=== PATIENT | male | born 1985 | race Caucasian/White ===

== ENCOUNTER 2019-12-16 19:30 | Emergency (ER) | payer OTHER, SELFPAY ==
[2019-12-16 19:34] VITALS: BP 132/90; PULSE 85; RESP 16; TEMP 36.6; O2SAT 98
--- NOTE | 2019-12-16 19:59 | ED.GENADUL_ITS ---
Discharge Plan Disposition Patient Disposition: HOME Condition: Stable Discharge Details Chief Complaint: RashLesion Clinical Impression: External hemorrhoid Primary Care Provider: Tomer Skinner ED Provider: Diana Evans Home Meds and New Rx's Prescriptions: New hydrocortisone 2.5 % cream with perineal applicator 1 applic UT QD-BID PRN7 Days Qty: 28 RF: 0 hydrocortisone acetate 25 mg suppository 25 mg UT DAILY PRN (Reason: hemorrhoids) 7 Days Qty: 12 RF: 0 Continued Proctofoam HC 1-1 % foam 1 applic UT TID PRN (Reason: hemorrhoids) Qty: 10 RF: 2 cetirizine [Zyrtec] 10 MG tablet 10 mg PO DAILY RF: 0 olopatadine [Patanol] 5 ML drops 1 drp Ophthalmic TID PRNQty: 5 RF: 0 mometasone [Nasonex] 17 GM spray,non-aerosol 2 spry NS QAM Qty: 3 RF: 0 Discharge Instructions Instructions: Hemorrhoids (ED) Additional Instructions: Take medications as directed. Use suppository once a day and topical cream once or twice a day as needed. Avoid prolonged sitting or straining. You may want to take an [id number] stool softener such as Colace while having hemorrhoid. Follow up with primary care provider in 3-5 days. Return to ED sooner if any w orsening or concerns. Increase oral fluids. Return to the ED for any worsening rectal bleeding, fever, chills or any concerns. Stand Alone Forms: Work Release Discharge Data Discharge Date/Time-TO BE ENTERED AT DEPARTURE: 12/16/19 20:32 Medical Decision Making 34-year-old male presents to the ED with complaints of lump in his rectal area x3 days. Associated with painful bowel movements, small streaks of bright red blood noted with bowel movements. Denies any dark or tarry stools, no abdominal pain, no nausea vomiting diarrhea no fever no chills. Patient states that he is no significant straining, has had a history of internal hemorrhoids in the past and does sit for long periods of time while at work. No other complaints at this time. Has not tried any medications or treatments at home. Findings at this time are consistent with a nonthrombosed external hemorrhoid. Patient does have a history of hemorrhoids. 2003: Plan at this time is to discharge with a rectal suppository and rectal cream. Discussed follow-up with primary care within a week if no better or to return for any worsening, patient verbalizes understanding. HPI General Mode of arrival: ambulatory . Date/Time Provider Initiated Documentation: 12/16/19 19:50 . Limitations to Documentation: no limitations . Information obtained by: patient . HPI Narrative: 34-year-old male presents to the ED with complaints of lump in his rectal area x3 days. Associated with painful bowel movements, small streaks of bright red blood noted with bowel movements. Denies any dark or tarry stools, no abdominal pain, no nausea vomiting diarrhea no fever no chills. Patient states that he is no significant straining, has had a history of internal hemorrhoids in the past and does sit for long periods of time while at work. No other complaints at this time. Has not tried any medications or treatments at home. Related Data Home Medications Medication Instructions Recorded Confirmed cetirizine [Zyrtec] 10 mg PO DAILY tab-cap 01/07/17 12/16/19 mometasone [Nasonex] 2 spry NS QAM #3 inh 01/07/17 12/16/19 olopatadine [Patanol] 1 drp OPHTHALMIC TID PRN #5 ml 01/07/17 09/06/19 hydrocortisone 1 %-pramoxine 1 % 1 applic UT TID PRN #10 gm 09/06/19 12/16/19 rectal foam hydrocortisone 1 applic UT QD-BID PRN 7 Days #28 12/16/19 gm hydrocortisone acetate 25 mg UT DAILY PRN 7 Days #12 each 12/16/19 Previous Rx's Medication Instructions Recorded hydrocortisone 1 %-pramoxine 1 % 1 applic UT TID PRN #10 gm 09/06/19 rectal foam hydrocortisone 1 applic UT QD-BID PRN 7 Days #28 12/16/19 gm hydrocortisone acetate 25 mg UT DAILY PRN 7 Days #12 each 12/16/19 Allergies Allergy/AdvReac Type Severity Reaction Status Date / Time SEASONAL ALLERGIES Allergy Unknown Uncoded 12/16/19 19:37 General Stated Complaint: RashLesion KARELY: 4 Review of Systems All systems reviewed & are unremarkable except as noted in HPI and below Constitutional Constitutional: Denies body ache(s), Denies chills, Denies fever(s), Denies headache(s) and Denies poor appetite ENT Ears, Nose, Mouth, and Throat: Denies headache(s) Gastrointestinal Gastrointestinal: Denies abdominal pain, Denies belching, Denies melena, Reports hematochezia (Small streaks), Denies constipation, Denies diarrhea, Denies loose stools, Denies nausea, Denies vomiting and Denies hematemesis Neurologic Neurologic: Denies headache(s) PFSH Family History Mother No problems noted. Father No problems noted. Brother No problems noted. Maternal Grandfather , AGE 66 Stroke Hypertension Heart disease Hyperlipidemia Paternal Grandfather , AGE 81 Depression Hyperlipidemia Heart disease Maternal Grandmother Hypertension Heart disease Hyperlipidemia Colon cancer Paternal Grandmother , AGE 69 Ovarian cancer Son No problems noted. Daughter No problems noted. Social History Smoking/Tobacco Use Status: Never Alcohol Intake: never Drug use: Never Substance use type: does not use Caregiver/Support person: No Household members: spouse, family and children Communication Needs: None current occupation: [employer] Pets and animals: No Sexually active: Yes Do you think of yourself as: straight/heterosexual Current gender identity: male What is your relationship status?: How often do you talk on the phone with friends or family?: once per week How often do you get together with friends or relatives?: decline to answer How often do you attend judaism or jewish services?: decline to answer Do you belong to any clubs or organized social groups?: no Panel score (0-1 are the most socially isolated patients): 1 What type of physical activity do you participate in: walking Duration: > 90 minutes/day Frequency: 3-4 times per week Destiny/Islam: Alevism Special destiny needs: No Seatbelt use: always 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 Appears stated age. Normal body habitus. Head: Normocephalic, no trauma. Eyes: Pupils PERRLA, Red reflex noted, EOM's intact. Eyelids symmetrical without lesions, discharge, or swelling. . Chest: RRR, Normal S1, S2, distal pulses intact. Resp: Lungs clear to auscultation bilaterally, no wheezes, rales, or rhonchi. GI: Rectal exam, external flesh-colored hemorrhoid noted at approximately 7:00. No internal hemorrhoid palpated, no gross Hemoccult blood noted. Musculoskeletal: Normal gait, 5/5 strength to all four extremities. Skin: No suspicious rashes or lesions. Capillary refill less than 2 sec. Neurologic: Cranial nerves II-XII intact. Alert and oriented x 3. DTR's intact. Course Vital Signs Vital signs: Vital Signs Temperature 36.6 C 12/16/19 19:34 Pulse 85 12/16/19 19:34 Respiratory Rate 16 12/16/19 19:34 Blood Pressure 132/90 12/16/19 19:34 Pulse Oximetry 98 12/16/19 19:34 Temperature 36.6 C 12/16/19 19:34 Temperature Source Skin 12/16/19 19:34 Pulse 85 12/16/19 19:34 Respiratory Rate 16 12/16/19 19:34 Respiratory Effort Non-Labored 12/16/19 19:36 Blood Pressure 132/90 12/16/19 19:34 Blood Pressure Position Sitting 12/16/19 19:34 Pulse Oximetry 98 12/16/19 19:34 Oxygen Delivery Method Room Air 12/16/19 19:34 Oxygen Flow Rate 0 12/16/19 19:34 Pain Level 6 12/16/19 19:34
[2019-12-16 20:14] VITALS: BP 132/90; PULSE 85; RESP 16; TEMP 36.6; O2SAT 98
== END 2019-12-16 20:32 | disposition home or self-care (01) ==
PROVIDERS: Emergency Provider Registered Nurse Emergency; PCP Family Medicine
DX: K64.4 Residual hemorrhoidal skin tags (principal)
CPT/HCPCS: 99283

== ENCOUNTER 2020-05-20 04:09 | Outpatient (CLI) | payer OTHER, SELFPAY ==
[2020-05-20 13:07] LABS: Calculated LDL 137 mg/dL (<100); Cholesterol 199 mg/dL (<200); HDL Cholesterol 41 mg/dL (40-60); Triglyceride 109 mg/dL (<150)
[2020-05-20 13:24] LABS: Hemoglobin A1C 5.3 % (<5.7)
== END 2020-05-20 04:29 ==
PROVIDERS: PCP Nurse Practitioner; Visit Provider Nurse Practitioner
DX: Z13.1 Encounter for screening for diabetes mellitus (principal); Z13.6 Encounter for screening for cardiovascular disorders
CPT/HCPCS: 36415; 80061; 83036

== ENCOUNTER 2020-09-10 11:20 | Outpatient (CLI) | payer OTHER, SELFPAY ==
--- NOTE | 2020-09-10 09:00 | DI.RAD_ITS ---
EXAM: XR SHOULDER LT COMPLETE 2+V CLINICAL HISTORY: left shoulder pain. TECHNIQUE: 2D digital imaging was performed. COMPARISON: No exams were available for comparison FINDINGS: Two view study of the left shoulder reveals no evidence of fracture or dislocation or abnormal soft t issue calcifications.. Subacromial space is not diminished. No degenerative changes in the glenohum eral and AC joints. Bone density is normal. No osseous lesions. IMPRESSION: No significant radiograph findings in these two views of the left shoulder. DATA REPOSITORY: RADIATION DOSE DELIVERED:
== END 2020-09-10 11:21 | disposition home or self-care (01) ==
LOC: DIORS 11:20
PROVIDERS: PCP Nurse Practitioner; Referring Provider Nurse Practitioner; Visit Provider Student in an Organized Health Care Education/Training Program
DX: M25.512 Pain in left shoulder (principal)
CPT/HCPCS: 73030

== ENCOUNTER 2020-10-20 19:54 | Emergency (ER) | payer OTHER, SELFPAY ==
[2020-10-20 19:58] VITALS: BP 128/69; PULSE 65; RESP 16; TEMP 36.4; O2SAT 96
--- NOTE | 2020-10-20 20:00 | DI.CT_ITS ---
EXAM: CT RENAL COLIC WO CLINICAL HISTORY: right sided flank pain. TECHNIQUE: Imaging Protocol: Axial computed tomography images with coronal and sagittal reformatted images were created and reviewed. COMPARISON: CT ABD/PELVIS WO W CONTRAST from 04/04/2017 FINDINGS: ABDOMEN: Lung Bases: Normal where visualized. Liver: Normal density. No measurable mass. Gallbladder and biliary tract: No radiodense calculus or biliary ductal dilation. Pancreas: Normal density, no abnormal calcifications or inflammatory process. Spleen: Normal. Kidneys: Normal size, contour and axis.There is a 2 mm stone in the distal right ureter just proximal to the UVJ. There is minimal hydronephrosis present. No nephrolithiasis is seen. No masses seen. Adrenal glands: No mass is seen. Lymph nodes: Within normal limits. Abdominal Aorta: Abdominal portion non-dilated. PELVIS: Bladder:Incomplete distension but no gross abnormality. Bowel: No obstruction or bowel wall thickening. Appendix is unremarkable. Peritoneal cavity: No ascites, collection or mesenteric inflammatory response. No free air. Reproductive organs: Stable postsurgical changes are seen in the scrotum. Bones: Within normal limits. Soft Tissues: Within normal limits. IMPRESSION: 2 mm stone in the distal right ureter causing minimal hydronephrosis. RADIATION DOSE DELIVERED: 679.57mGy.cm Total DLP DATA REPOSITORY: All CT scans at this facility are submitted to the National Radiology Data Registry (NRDR) Dose Index Registry (DIR) with the [employer] (ACR). RADIATION OPTIMIZATION: All CT scans at this facility use at least one of these dose optimization te chniques: automated exposure control; mA and/or kV adjustment per patient size (includes targeted exa ms where dose is matched to clinical indication); or iterative reconstruction.
--- NOTE | 2020-10-20 20:04 | W.ED.GENAD ---
Discharge Plan Disposition Patient Disposition: HOME Condition: Good Discharge Details Clinical Impression: Kidney calculus Primary Care Provider: Nataly Richards ED Provider: Kristie Woods Home Meds and New Rx's Prescriptions: New tamsulosin [Flomax] 0.4 mg capsule 0.4 mg PO DAILY Qty: 10 RF: 0 Continued cetirizine [Zyrtec] 10 MG tablet 10 mg PO DAILY RF: 0 olopatadine [Patanol] 5 ML drops 1 drp Ophthalmic TID PRNQty: 5 RF: 0 mometasone [Nasonex] 17 GM spray,non-aerosol 2 spry NS QAM Qty: 3 RF: 0 ibuprofen 200 mg Tablet 400 mg PO PRN PRNRF: 0 Discharge Instructions Instructions: Oxycodone, Rapid Release (By mouth), Kidney Stones (ED) Additional Instructions: You have a small kidney stone on the right side. This is likely causing your pain. You may continue with Tylenol and/or ibuprofen as needed for discomfort. You may take Tylenol at anytime. Next dose of ibuprofen may be taken at 4 AM. If this is insufficient at alleviating your discomfort, you may use the oxycodone as prescribed. Do not drive will take this medication. Please keep in a safe place to please encourage water intake. Please strain your urine and attempt to bring stone to your upcoming urology appointment. You may call urology to schedule follow-up appointment, number listed below. If you develop fever/chills, inability stay hydrated, severe pain or other new/worsening symptoms to seek care urgently Stand Alone Forms: Work Release Referrals: Ignacio Maen MD [ [facility]YSICIAN] - Nataly Richards NP [Primary Care Provider] - Discharge Data Discharge Date/Time-TO BE ENTERED AT DEPARTURE: 10/20/20 22:15 Medical Decision Making Patient is a pleasant 35-year-old gentleman presenting today with chief complaint of right flank pain. He reports that it began approximately 30 minutes prior to arrival. Describes a sudden onset when he was watching TV. Denies having pain like this historically. However, he reports that his brother does have kidney stones frequently and he believes this may be with occurring. He denies any hematuria. States that he has had a change in his urinary stream but does not elaborate on this. Denies any penile discharge. Denies any testicular pain. Denies any fevers or chills. Pain is not linked with p.o. intake. No past abdominal surgeries. On exam, patient appears nontoxic. He does have right CVA tenderness. Lungs are clear, normal cardiac exam. No rash. Abdominal exam is benign, negative Wells Primarily concerned for kidney stone. Will give IV Toradol. Will obtain baseline labs, urinalysis and obtain CT for renal study. Also considered abdominal source. His history exam is not consistent with testicular torsion. Patient does report that he has been exercising more frequently, this could be muscular in nature although it is not worsened with any type of movement making this less likely. Patient feeling improved after Toradol. States that he can still feel it but that is not nearly as painful. Labs reviewed notable for ptosis. Stable H&H. Kidney function within normal limits. UA significant for large amount of blood but no evidence of infection. FINDINGS: Liver: Normal. No mass. Gallbladder and bile ducts: Normal. No calcified stones. No ductal dilation. Pancreas: Normal. No ductal dilation. Spleen: Normal. No splenomegaly. Adrenal glands: Normal. No mass. Kidneys and ureters: Punctate calculus in the distal right ureter with minimal proximal hydroureter. No other urolithiasis. Kidneys and ureters are otherwise unremarkable. Stomach and bowel: Unremarkable. No obstruction. No mucosal thickening. Appendix: Normal appendix. Intraperitoneal space: Unremarkable. No free air. No significant fluid collection. Vasculature: Unremarkable. No abdominal aortic aneurysm. Lymph nodes: Prominent left upper quadrant mesenteric lymph nodes, similar to the comparison exam. Urinary bladder: Unremarkable as visualized. Reproductive: Unremarkable as visualized. Bones/joints: Unremarkable. No acute fracture. Soft tissues: Unremarkable. IMPRESSION: Punctate minimally obstructing distal right ureteral calculus. Discussed the findings with the patient. Encourage water intake. We will start him on Flomax to encourage passage of stone. We did discuss the expected course. Advise follow-up with urology. Referral has been sent to Dr. Mane's office. He will strain his urine and attempt to catch the stone. We discussed pain management. He is to do quite well with anti-inflammatories. However, given the severity of his discomfort initially and his concern for this returning throughout the night, will send him home with oxycodone. States usage instructions were discussed. I did advise that he not drive will take this medication and take only as prescribed. Strict return precautions were discussed, in particular signs of infection. All questions and concerns were addressed and he is in agreement this plan. HPI General Mode of arrival: ambulatory. Date/Time Provider Initiated Documentation: 10/20/20 19:58. Limitations to Documentation: no limitations. Information obtained by: patient and RN notes reviewed. History of Present Illness 35 year old M presents to the emergency department with the chief complaint of right flank pain, described as moderate, with intensity rated at 5. Quality is described as sharp, and is localized to the back. Patient reports no radiation. Patient started experiencing this minute(s) (30) and it has been colicky. No relieving factors improve symptom(s), No exacerbating factors reported . Patient notes nausea/vomiting (reports nausea when pain was first noted, since resolved); denies chest pain, cough, fever/chills, loss of appetite, rash, shortness of breath and weakness. Patient did receive the following treatments prior to arrival, none Related Data Home Medications Medication Instructions Recorded Confirmed cetirizine [Zyrtec] 10 mg PO DAILY tab-cap 01/07/17 10/20/20 mometasone [Nasonex] 2 spry NS QAM #3 inh 01/07/17 10/20/20 olopatadine [Patanol] 1 drp OPHTHALMIC TID PRN #5 ml 01/07/17 10/20/20 ibuprofen 400 mg PO PRN PRN 10/20/20 10/20/20 tamsulosin [Flomax] 0.4 mg PO DAILY #10 cap 10/20/20 Previous Rx's Medication Instructions Recorded tamsulosin [Flomax] 0.4 mg PO DAILY #10 cap 10/20/20 Allergies Allergy/AdvReac Type Severity Reaction Status Date / Time SEASONAL ALLERGIES Allergy Unknown Uncoded 10/20/20 20:03 General Stated Complaint: FlankPain KARELY: 3 Review of Systems Constitutional Constitutional: Reports as per HPI, Denies chills, Denies fatigue, Denies fever(s) and Denies headache(s) ENT Ears, Nose, Mouth, and Throat: Denies headache(s) Cardiovascular Cardiovascular: Reports as per HPI, Denies chest pain and Denies dyspnea Respiratory Respiratory: Reports as per HPI, Denies cough and Denies dyspnea Gastrointestinal Gastrointestinal: Reports as per HPI Genitourinary Genitourinary: Reports as per HPI Musculoskeletal Musculoskeletal: Reports as per HPI Neurologic Neurologic: Denies headache(s) Endocrine Endocrine: Denies fatigue [facility] Medical History Decreased urine stream stable Microscopic hematuria (03/25/17) [facility] [place]- 2017 all testing wnl Family History (Updated 05/21/20 @ 08:59 by Amanda Martin) Mother No problems noted. Father No problems noted. Brother No problems noted. Maternal Grandfather , AGE 66 Stroke Hypertension Heart disease Hyperlipidemia Paternal Grandfather , AGE 81 Depression Hyperlipidemia Heart disease Maternal Grandmother Hypertension Heart disease Hyperlipidemia Colon cancer Paternal Grandmother , AGE 69 Ovarian cancer Son No problems noted. Daughter No problems noted. Social History Smoking/Tobacco Use Status: Never Smoking risk assessment performed?: Yes Alcohol Intake: never Drug use: Never Substance use type: does not use Caregiver/Support person: No Household members: spouse, family and children Housing: house Communication Needs: None current occupation: [employer] Pets and animals: No Sexually active: Yes Do you think of yourself as: straight/heterosexual Current gender identity: male What is your relationship status?: How often do you talk on the phone with friends or family?: once per week How often do you get together with friends or relatives?: never How often do you attend rastafari or jewish services?: decline to answer Do you belong to any clubs or organized social groups?: no Panel score (0-1 are the most socially isolated patients): 1 What type of physical activity do you participate in: walking Duration: 30-45 minutes/day Frequency: 5-6 times per week Destiny/Confucianism: Baptist Special destiny needs: No Seatbelt use: always Helmet use: Yes Helmet use: always 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 Do you feel safe at home: Yes Do you feel safe in your relationship?: Yes Victim of physical abuse: No Victim of emotional abuse: No Victim of sexual abuse: No Would you like helpful sources: No Exam Const General: cooperative, healthy appearing, uncomfortable, no acute distress and well developed Nutritional Appearance: average body habitus and well nourished Orientation: alert and awake HENMT Mouth: moist mucous membranes Resp Effort & Inspection: normal respiratory effort and no respiratory distress Auscultation: clear to auscultation bilaterally, no rales, no rhonchi and no wheezes Cardio Rate: regular rate Rhythm: regular rhythm Heart Sounds: S1 normal and S2 normal GI Inspection: normal to inspection, no edema and non-distended Palpation: soft, no hepatosplenomegaly, no guarding, no hernias, no pulsatile masses and nontender Percussion: normal to percussion Auscultation: normal bowel sounds Back/Spine/Pelvis Back: CVA tenderness (right) Skin General skin exam: no rashes or lesions noted Neuro General: patient alert and patient awake Cognition: normal cognition Speech: speech normal Gait: normal gait Psych Appearance: grossly normal and well kempt Mental Status: mental status grossly normal Speech and Movement: speech and movement normal Course Vital Signs Vital signs: Vital Signs Temperature 36.4 C L 10/20/20 19:58 Pulse 65 10/20/20 19:58 Respiratory Rate 16 10/20/20 19:58 Blood Pressure 128/69 10/20/20 19:58 Pulse Oximetry 96 10/20/20 19:58 Temperature 36.4 C L 10/20/20 19:58 Temperature Source Temporal Artery Scan 10/20/20 19:58 Pulse 65 10/20/20 19:58 Respiratory Rate 16 10/20/20 19:58 Blood Pressure 128/69 10/20/20 19:58 Blood Pressure Position Sitting 10/20/20 19:58 Pulse Oximetry 96 10/20/20 19:58 Pain Level 5 10/20/20 19:58
[2020-10-20 20:49] LABS: Absolute Basophil Count 0.06 10^3/uL (0.0-0.2); Absolute Lymphocyte Count 1.87 10^3/uL (1.2-3.4); Absolute Monocyte Count 0.52 10^3/uL (0.1-0.8); Absolute Neutrophil Count 2.65 10^3/uL (1.2-6.7); Basophils % 1.1; Eosinophils % 10.5; HCT 45.8 % (40.0-50.0); HGB 14.9 g/dL (13.5-17.5); Lymphocytes % 32.8; MCH 30.3 pg (27.0-33.0); MCHC 32.5 % (32.0-36.0); MCV 93.3 fL (80-95); MPV 11.5 fL (8.0-11.0); Monocytes % 9.1; Neutrophils % 46.5; Nucleated RBC 0 %; Platelet Count 207 10^3/uL (130-400); RBC 4.91 10^6/uL (4.36-5.78); RDW 12.8 % (11.8-14.1); RDW-SD 44.1 fL
[2020-10-20] MEDS: Normal Saline 1,000 ML 1000 ML IV (20:50)
[2020-10-20] MEDS: Ketorolac 30 MG/ML VIAL IVP (20:51)
[2020-10-20 20:53] VITALS: BP 112/76; PULSE 58; RESP 18; O2SAT 98
[2020-10-20 20:53] LABS: Bilirubin Negative (Negative); Blood Large (Negative); Clarity Clear (Clear); Glucose Negative (Negative); Ketones Negative (Negative); Leukocyte Esterase Negative (Negative); Nitrite Negative (Negative); Urobilinogen 0.2 EU/dL (Up TO 0.2)
[2020-10-20 20:57] LABS: Epithelial Cells Rare HPF (Negative); RBC >50 HPF (0-2); WBC Negative HPF (0-5)
[2020-10-20 20:58] LABS: Bacteria Negative HPF (Negative); C & S Indicated? No; Casts Negative LPF (Negative); Crystals Negative HPF (Negative); Mucus Negative (Negative); Other Cells Negative (Negative)
[2020-10-20 21:03] LABS: ALT 29 U/L (16-63); AST 16 U/L (15-37); Albumin 4.4 g/dL (3.4-5.0); Alkaline Phosphatase 77 U/L (46-116); Anion Gap 6.7 mmol/L (3-11); BUN 18 mg/dL (7-18); Bilirubin, Total 0.8 mg/dL (0.2-1.0); CO2 31.3 mmol/L (21.0-32.0); CREATININE 1.1 mg/dL (0.70-1.30); Calcium 8.9 mg/dL (8.5-10.1); Chloride 103 mmol/L (98-107); Glucose 121 mg/dL (74-106); Potassium 3.9 mmol/L (3.5-5.1); Sodium 141 mmol/L (136-145); Total Protein 7.7 g/dL (6.4-8.2)
--- NOTE | 2020-10-20 21:33 | DI.VRAD_ITS ---
PROCEDURE INFORMATION: Exam: CT Abdomen And Pelvis Without Contrast Exam date and time: 10/20/2020 8:44 PM Age: 35 years old Clinical indication: Patient HX: Sudden onset of R flank pain TECHNIQUE: Imaging protocol: Computed tomography of the abdomen and pelvis without contrast. Radiation optimization: All CT scans at this facility use at least one of these dose optimization techniques: automated exposure control; mA and/or kV adjustment per patient size (includes targeted exams where dose is matched to clinical indication); or iterative reconstruction. COMPARISON: CT ABD/PELVIS WO W CONTRAST 04/04/2017 8:45 AM FINDINGS: Liver: Normal. No mass. Gallbladder and bile ducts: Normal. No calcified stones. No ductal dilation. Pancreas: Normal. No ductal dilation. Spleen: Normal. No splenomegaly. Adrenal glands: Normal. No mass. Kidneys and ureters: Punctate calculus in the distal right ureter with minimal proximal hydroureter. No other urolithiasis. Kidneys and ureters are otherwise unremarkable. Stomach and bowel: Unremarkable. No obstruction. No mucosal thickening. Appendix: Normal appendix. Intraperitoneal space: Unremarkable. No free air. No significant fluid collection. Vasculature: Unremarkable. No abdominal aortic aneurysm. Lymph nodes: Prominent left upper quadrant mesenteric lymph nodes, similar to the comparison exam. Urinary bladder: Unremarkable as visualized. Reproductive: Unremarkable as visualized. Bones/joints: Unremarkable. No acute fracture. Soft tissues: Unremarkable. IMPRESSION: Punctate minimally obstructing distal right ureteral calculus. Dictated and Authenticated by: Harris Espino MD. Ordering:TRISTON Flowers MD
[2020-10-20] MEDS: Tamsulosin 0.4 MG CAPCR PO (22:01)
--- NOTE | 2020-10-20 22:01 | NUR.NOTE ---
Nursing Note: REFERAL SENT TO UROLOGY FOR KIDNEY STONES 10/20/20
[2020-10-20 22:07] VITALS: BP 114/72; PULSE 71; RESP 18; TEMP 36.8; O2SAT 99
== END 2020-10-20 22:15 | disposition home or self-care (01) ==
PROVIDERS: Emergency Provider Physician Assistant; PCP Nurse Practitioner
DX: N13.2 Hydronephrosis with renal and ureteral calculous obstruction (principal); R11.2 Nausea with vomiting, unspecified
CPT/HCPCS: 36415; 80053; 96361; 96374; 99284; 74176; 81003; 81015; 85025; 99285; J1885

== ENCOUNTER 2020-11-11 14:58 | Outpatient (REF) | payer OTHER, SELFPAY ==
[2020-11-17 22:18] LABS: Source: Passed Stone
== END 2020-11-11 14:59 | disposition home or self-care (01) ==
LOC: LBN 14:58
PROVIDERS: PCP Nurse Practitioner; Visit Provider Nurse Practitioner Gerontology
DX: N20.0 Calculus of kidney (principal)
CPT/HCPCS: 82365

== ENCOUNTER 2020-11-18 03:12 | Outpatient (CLI) | payer OTHER, SELFPAY ==
[2020-11-18 12:52] LABS: Calculated LDL 82 mg/dL (<100); Cholesterol 137 mg/dL (<200); HDL Cholesterol 45 mg/dL (40-60); Triglyceride 51 mg/dL (<150)
== END 2020-11-18 03:13 | disposition home or self-care (01) ==
LOC: LOS 03:12
PROVIDERS: PCP Nurse Practitioner; Visit Provider Nurse Practitioner
DX: Z13.220 Encounter for screening for lipoid disorders (principal)
CPT/HCPCS: 36415; 80061

== ENCOUNTER 2021-03-19 05:59 | Emergency (ER) | payer OTHER, SELFPAY ==
--- NOTE | 2021-03-19 06:00 | DI.CT_ITS ---
Exam(s) CT RENAL COLIC WO EXAM: CT RENAL COLIC WO CLINICAL HISTORY: left flank pain. TECHNIQUE: Imaging Protocol: Axial computed tomography images with coronal and sagittal reformatted images were created and reviewed CONTRAST MATERIAL: Intravenous: none Oral: None COMPARISON: CT CT RENAL COLIC WO from 10/20/2020 FINDINGS: VISUALIZED LUNG BASES: No nodules nor pleural effusions evident. ABDOMEN: There is no ascites. LIVER: There are no obvious focal hepatic lesions evident of this noninfused study. GALLBLADDER/BILIARY: No obvious gallbladder pathology. CBD is not dilated. PANCREAS: No evidence of pancreatic mass nor dilatation of the pancreatic duct. SPLEEN: Spleen is not enlarged. No obvious intrasplenic lesions. ADRENALS: There are no significant adrenal masses. KIDNEYS:No cysts evident. No solid renal masses. No calculi nor hydronephrosis. . ABDOMINAL AORTA: Abdominal aorta is not enlarged. LYMPH NODES: There is no retroperitoneal nor paraaortic adenopathy. ABDOMINAL WALL: No evidence of significant anterior abdominal wall nor inguinal hernia. GI: There is no evidence of bowel obstruction, free air, nor abscess. There are mesenteric lymph nodes ranging up to 8 millimeter size. PELVIS: LYMPH NODES: There is no intrapelvic nor inguinal adenopathy. GI: Appendix exhibits a diameter 5-6 millimeters. It appears somewhat straightened. No obvious per iappendiceal streaking. No appendiculalith.No evidence of sigmoid diverticulitis. URINARY BLADDER: Somewhat thickened uniform bladder wall. No distinct mass. No calculi. REPRODUCTIVE: Prostate not enlarged. Seminal vesicles unremarkable. OSSEOUS: No significant osseous lesions. IMPRESSION: 1. Although the appendix exhibits upper normal diameter, it appears somewhat straightened. There is no periappendiceal streaking. No appendicular lith. Correlation with site of tenderness is recommen ded. However, the appendix appears unchanged from prior CT scan of 10/20/2020 2. There are few slightly prominent lymph nodes in the mesentery measuring up to 8 millimeters size. 3. No evidence of renal calculi nor obstruction of the urinary tracts at this time. Study 1st read by [facility]. Final report called by myself to the emergency room provider 03/19/2021 8:50 a.m. RADIATION DOSE DELIVERED: 592.6mGy.cm Total DLP DATA REPOSITORY: All CT scans at this facility are submitted to the National Radiology Data Registry (NRDR) Dose Index Registry (DIR) with the [employer] (ACR). RADIATION OPTIMIZATION: All CT scans at this facility use at least one of these dose optimization te chniques: automated exposure control; mA and/or kV adjustment per patient size (includes targeted exa ms where dose is matched to clinical indication); or iterative reconstruction.
[2021-03-19 06:03] VITALS: BP 114/69; PULSE 61; RESP 16; TEMP 36.4; O2SAT 97
--- NOTE | 2021-03-19 06:10 | W.ED.GENAD ---
Discharge Plan Disposition Patient Disposition: HOME Condition: Stable Discharge Details Clinical Impression: Left-sided back pain Primary Care Provider: Nataly Richards ED Provider: Aguila Lopez Home Meds and New Rx's Prescriptions: No Action No Known Home Meds RF: 0 Discharge Instructions Additional Instructions: your cat scan did not show any kidney stones. This is likely a muscle spasm or back strain you can take 1000mg tylenol and 600mg ibuprofen every 6 hours as needed for pain you can try taking over the couter pepcid if you develop acid reflux follow up with your primary care provider within 1 week if pain continues if you feel more ill, have severe worsening pain or fevers return to the emergency department Medical Decision Making 36 yo male with hx of kidney stones, last being in October, comes in with left flank pain starting last night. He woke up for work at 4am and when he got to work it increased to 9/10 on the pain scale so came here, now rates it as a 4-5/10. Describes it as a sharp sensation in the left lower back and states it radiates to the left abdomen. No midline pain, no weakness numbness or saddle anesthesia. He has no abdomen tenderness, no cva tenderness and denies dysuria. Suspect kidney stone, will obtain labs, ua and ct renal colic. No findings on history to exam to suggest spinal cord pathology such as sea or cauda equina and given lack of abdomen tenderness doubt surgical pathology such as appendicitis. labs unremarkable and ua without concerning findings. CT has no kidney stones, they did note perigastric straning with equivocal thickening of gastric fundus, consider gastritis. normal lipase so doubt pancreatitis and has no abdomen tenderness. No urinary symptoms so doubt uti. His pain is resolved and still has no abdomen tenderness. Suspect spasm vs strain. Discussed findings with pt and he is stable for d/c. Advised to f/u with pcp and return precautions given Differential Diagnosis Differential Diagnosis: diverticulitis, kidney stone, muscle spasm Medical Records Medical records reviewed: Yes I reviewed the patient's medical records. Imaging Data Radiologic Study: Attestation: I personally reviewed and interpreted this imaging study as follows: Imaging: CT Scan Radiologist's impression: IMPRESSION: 1. Perigastric stranding noted extending into the lesser sac. There is equivocal thickening of the gastric fundus. Consider gastritis in the correct clinical setting. Would also recommend correlation with pancreatic enzymes to exclude pancreatitis. 2. Equivocal cystitis. Lab Data Lab results reviewed: Yes I reviewed the patient's lab results. HPI General Mode of arrival: ambulatory. Date/Time Provider Initiated Documentation: 03/19/21 06:00. Limitations to Documentation: no limitations. Information obtained by: patient. History of Present Illness 36 year old M presents to the emergency department with the chief complaint of left flank pain, described as moderate, with intensity rated at 5. Quality is described as stabbing, Patient started experiencing this day(s) (1) and it has been intermittent. No relieving factors improve symptom(s), No exacerbating factors reported . Patient notes no other symptoms.. Patient did receive the following treatments prior to arrival, none Related Data Home Medications Medication Instructions Recorded Confirmed Unknown [No Known Home Meds] 03/19/21 03/19/21 Allergies Allergy/AdvReac Type Severity Reaction Status Date / Time SEASONAL ALLERGIES Allergy Unknown Uncoded 03/19/21 06:10 General KARELY: 3 Review of Systems All systems reviewed & are unremarkable except as noted in HPI and below Constitutional Constitutional: Denies chills, Denies fever(s) and Denies weakness Cardiovascular Cardiovascular: Denies chest pain and Denies dyspnea Respiratory Respiratory: Denies cough and Denies dyspnea Gastrointestinal Gastrointestinal: Denies abdominal pain, Denies nausea and Denies vomiting Musculoskeletal Musculoskeletal: Denies joint swelling Neurologic Neurologic: Denies weakness [facility] Medical History Decreased urine stream stable Microscopic hematuria (03/25/17) [facility] [place] all testing wnl Family History Mother No problems noted. Father No problems noted. Brother No problems noted. Maternal Grandfather , AGE 66 Stroke Hypertension Heart disease Hyperlipidemia Paternal Grandfather , AGE 81 Depression Hyperlipidemia Heart disease Maternal Grandmother Hypertension Heart disease Hyperlipidemia Colon cancer Paternal Grandmother , AGE 69 Ovarian cancer Son No problems noted. Daughter No problems noted. Social History Smoking/Tobacco Use Status: Never Smoking risk assessment performed?: Yes Alcohol Intake: never Drug use: Never Substance use type: does not use Caregiver/Support person: No Household members: spouse, family and children Housing: house Communication Needs: None current occupation: [employer] Pets and animals: No Sexually active: Yes Do you think of yourself as: straight/heterosexual Current gender identity: male What is your relationship status?: How often do you talk on the phone with friends or family?: once per week How often do you get together with friends or relatives?: never How often do you attend mu-ism or gnosticism services?: decline to answer Do you belong to any clubs or organized social groups?: no Panel score (0-1 are the most socially isolated patients): 1 What type of physical activity do you participate in: walking Duration: 30-45 minutes/day Frequency: 5-6 times per week Destiny/Sabianism: Samaritan Special destiny needs: No Seatbelt use: always Helmet use: Yes Helmet use: always Drive intox or ride w/intox snaker tractor driver: No Do you feel safe at home: Yes Do you feel safe in your relationship?: Yes Victim of physical abuse: No Victim of emotional abuse: No Victim of sexual abuse: No Would you like helpful sources: No Exam Const General: no acute distress Orientation: alert HENMT Head: normal to inspection Ears: external ears normal General nose exam: external nose normal Mouth: moist mucous membranes Eyes General: appearance normal, both eyes and all related structures Neck Neck: normal visual inspection Resp Effort & Inspection: normal respiratory effort and able to speak in complete sentences Cardio Rate: regular rate GI Palpation: soft and nontender Back/Spine/Pelvis Back: no CVA tenderness Skin General skin exam: no rashes or lesions noted Neuro General: patient alert and patient oriented x3 Extrem General: normal to inspection Psych Mental Status: mental status grossly normal
[2021-03-19 06:24] LABS: Bilirubin Negative (Negative); Blood Negative (Negative); Clarity Clear (Clear); Glucose Negative (Negative); Ketones Negative (Negative); Leukocyte Esterase Negative (Negative); Nitrite Negative (Negative); Specific Gravity 1.025 (1.005-1.025); Urobilinogen 0.2 EU/dL (Up TO 0.2); pH 5.5 (5-8)
[2021-03-19 06:24] LABS: Abs Immature Grans 0.01 10^3/uL (0.0-0.06); Absolute Basophil Count 0.05 10^3/uL (0.0-0.2); Absolute Eosinophil Count 0.34 10^3/uL (0.0-0.7); Absolute Lymphocyte Count 1.36 10^3/uL (1.2-3.4); Absolute Monocyte Count 0.47 10^3/uL (0.1-0.8); Absolute Neutrophil Count 3.02 10^3/uL (1.2-6.7); Eosinophils % 6.5; HCT 46.5 % (40.0-50.0); HGB 15.4 g/dL (13.5-17.5); Immature Grans % 0.2; Lymphocytes % 25.9; MCH 30.2 pg (27.0-33.0); MCHC 33.1 % (32.0-36.0); MCV 91.2 fL (80-95); MPV 10.5 fL (8.0-11.0); Neutrophils % 57.4; Nucleated RBC 0 %; Platelet Count 223 10^3/uL (130-400); RDW 12.6 % (11.8-14.1); RDW-SD 42.3 fL; WBC 5.25 10^3/uL (4.4-10.8)
[2021-03-19] MEDS: Normal Saline 1,000 ML 1000 ML IV (06:26)
[2021-03-19] MEDS: Ketorolac 15 MG/ML VIAL IVP (06:26)
[2021-03-19 06:38] LABS: ALT 33 U/L (16-63); AST 15 U/L (15-37); Albumin 4.3 g/dL (3.4-5.0); Alkaline Phosphatase 70 U/L (46-116); Anion Gap 6.7 mmol/L (3-11); BUN 17 mg/dL (7-18); Bilirubin, Total 1.4 mg/dL (0.2-1.0); CO2 29.3 mmol/L (21.0-32.0); CREATININE 1.1 mg/dL (0.70-1.30); Calcium 8.6 mg/dL (8.5-10.1); Chloride 104 mmol/L (98-107); Glucose 94 mg/dL (74-106); Lipase 78 U/L (73-393); Potassium 4.2 mmol/L (3.5-5.1); Sodium 140 mmol/L (136-145); Total Protein 7.8 g/dL (6.4-8.2)
--- NOTE | 2021-03-19 07:02 | DI.VRAD_ITS ---
PROCEDURE INFORMATION: Exam: CT Abdomen And Pelvis Without Contrast Exam date and time: 03/19/2021 6:10 AM Age: 36 years old Clinical indication: Other: Left flank pain / HX of stones TECHNIQUE: Imaging protocol: Computed tomography of the abdomen and pelvis without contrast. COMPARISON: CT ABD/PELVIS WO W CONTRAST 04/04/2017 8:45 AM FINDINGS: Liver: Normal. No mass. Gallbladder and bile ducts: Normal. No calcified stones. No ductal dilation. Pancreas: See Stomach and bowel finding. Spleen: Normal. No splenomegaly. Adrenal glands: Normal. No mass. Kidneys and ureters: Normal. No hydronephrosis. Stomach and bowel: Perigastric stranding noted extending into the lesser sac. There is equivocal thickening of the gastric fundus. Consider gastritis in the correct clinical setting. Would also recommend correlation with pancreatic enzymes to exclude pancreatitis. Appendix: No evidence of appendicitis. Intraperitoneal space: Unremarkable. No free air. No significant fluid collection. Vasculature: Unremarkable. No abdominal aortic aneurysm. Lymph nodes: Unremarkable. No enlarged lymph nodes. Urinary bladder: The urinary bladder is questionably thickwalled. This may reflect incomplete distention. However correlation with UA is recommended to exclude cystitis. Reproductive: Unremarkable as visualized. Bones/joints: Unremarkable. No acute fracture. Soft tissues: Unremarkable. IMPRESSION: 1. Perigastric stranding noted extending into the lesser sac. There is equivocal thickening of the gastric fundus. Consider gastritis in the correct clinical setting. Would also recommend correlation with pancreatic enzymes to exclude pancreatitis. 2. Equivocal cystitis. Dictated and Authenticated by: Erasto Das MD. Ordering:MARJAN Sheehan MD
[2021-03-19 07:19] VITALS: BP 103/65; PULSE 55; RESP 18; TEMP 36.6; O2SAT 97
== END 2021-03-19 07:22 | disposition home or self-care (01) ==
PROVIDERS: Emergency Provider Emergency Medicine; PCP Nurse Practitioner
DX: M54.9 Dorsalgia, unspecified (principal); R10.9 Unspecified abdominal pain
CPT/HCPCS: 80053; 83690; 96361; 96374; 99284; 74176; 81003; 85025; J1885

== ENCOUNTER 2021-08-07 01:27 | Outpatient (CLI) | payer OTHER, SELFPAY ==
--- NOTE | 2021-08-07 06:45 | DI.RAD_ITS ---
Exam(s) XR RIBS RT W PA LAT CHEST EXAM: XR RIBS RT W PA LAT CHEST CLINICAL HISTORY: r/o fx,CONTUSION RIB RT SIDE,S20.211A TECHNIQUE: 2D digital imaging was performed. COMPARISON: No exams were available for comparison FINDINGS: MEDIASTINUM: Normal. HEART: Normal. PULMONARY VASCULATURE: Normal. LUNGS: Clear. PLEURAL SPACE: No pleural effusion or pneumothorax. BONE:Normal. RIGHT RIBS: Normal. OTHER FINDINGS:Normal. IMPRESSION: 1. No acute pulmonary findings. 2. Unremarkable right ribs. DATA REPOSITORY: RADIATION DOSE DELIVERED:
== END 2021-08-07 01:47 ==
PROVIDERS: PCP Nurse Practitioner; Visit Provider Nurse Practitioner
DX: S20.211A Contusion of right front wall of thorax, initial encounter (principal); X58.XXXA Exposure to other specified factors, initial encounter
CPT/HCPCS: 71046; 71100

== ENCOUNTER 2021-09-18 12:14 | Emergency (ER) | payer OTHER, SELFPAY ==
--- NOTE | 2021-09-18 12:15 | RT.EKG_ITS ---
APPROVED REPORT Exam: Resting ECG Reason for Exam: CHEST PAIN Patient Location: E HR:53 bpm ECG Measurements Heart Rate 53 AXIS NC 139 P 69 QRSd 77 QRS 63 QT 429 T 26 QTc 402 Conclusion Sinus bradycardia...rate< 60. Sinus. Normal axis. No STEMI. I have reviewed and interpreted ECG and agree with software generated interpretation.
[2021-09-18 12:23] VITALS: BP 116/81; PULSE 62; RESP 16; TEMP 36.1; O2SAT 97
[2021-09-18 13:44] LABS: Abs Immature Grans 0.01 10^3/uL (0.0-0.06); Absolute Basophil Count 0.05 10^3/uL (0.0-0.2); Absolute Lymphocyte Count 1.87 10^3/uL (1.2-3.4); Absolute Monocyte Count 0.49 10^3/uL (0.1-0.8); Absolute Neutrophil Count 2.52 10^3/uL (1.2-6.7); Basophils % 0.9; Eosinophils % 7.5; HCT 43.2 % (40.0-50.0); HGB 14.4 g/dL (13.5-17.5); Immature Grans % 0.2; MCHC 33.3 % (32.0-36.0); MPV 10.8 fL (8.0-11.0); Monocytes % 9.2; Neutrophils % 47.2; Nucleated RBC 0 %; Platelet Count 217 10^3/uL (130-400); RDW 12.4 % (11.8-14.1); RDW-SD 41.2 fL; WBC 5.34 10^3/uL (4.4-10.8)
[2021-09-18 14:00] LABS: ALT 27 U/L (16-63); AST 20 U/L (15-37); Albumin 4.2 g/dL (3.4-5.0); Alkaline Phosphatase 67 U/L (46-116); Anion Gap 7.2 mmol/L (3-11); BUN 10 mg/dL (7-18); Bilirubin, Total 2.1 mg/dL (0.2-1.0); CO2 27.8 mmol/L (21.0-32.0); Calcium 8.5 mg/dL (8.5-10.1); Chloride 105 mmol/L (98-107); Glucose 81 mg/dL (74-106); Magnesium 2.3 mg/dL (1.8-2.4); Potassium 3.8 mmol/L (3.5-5.1); Sodium 140 mmol/L (136-145); Total Protein 7.4 g/dL (6.4-8.2); Troponin I < 50 ng/L (<or=60)
[2021-09-18 14:13] LABS: D-Dimer 88 ng/mlFEU (<500)
[2021-09-18] MEDS: Ketorolac 15 MG/ML VIAL IVP (14:44)
--- NOTE | 2021-09-18 14:53 | DI.RAD_ITS ---
Exam(s) XR CHEST 2V PA LATERAL EXAM: XR CHEST 2V PA LATERAL CLINICAL HISTORY: chest pain TECHNIQUE: 2D digital imaging was performed of the chest. Two images were obtained. PA and lateral views were obtained. COMPARISON: CR XR RIBS RT W PA LAT CHEST from 08/07/2021 FINDINGS: MEDIASTINUM: Normal. HEART: Normal. PULMONARY VASCULATURE: Normal. LUNGS: Clear. PLEURAL SPACE: No pleural effusion or pneumothorax. BONE:Within normal limits for the patient's age. OTHER FINDINGS:Normal. IMPRESSION: No acute pulmonary findings. DATA REPOSITORY: RADIATION DOSE DELIVERED:
--- NOTE | 2021-09-18 15:26 | W.ED.GENAD ---
Discharge Plan Disposition Patient Disposition: HOME Condition: Stable Discharge Details Clinical Impression: Costochondritis Primary Care Provider: Nataly Richards ED Provider: Maximus Prescott Home Meds and New Rx's Prescriptions: New ibuprofen [IBU] 600 mg tablet 600 mg PO QID PRN (Reason: pain) Qty: 20 0RF No Action hydrocortisone [Anusol-HC] 2.5 % cream with perineal applicator 1 applic [place] QD-BID PRN (Reason: hemorrhoids) Qty: 30 1RF Discharge Instructions Instructions: Costochondritis (ED) Additional Instructions: Please take the ibuprofen as discussed and feel free to return to the emergency department for any new or significant worsening of your symptoms. If you are not improving over the next week please follow-up with your primary care provider for reassessment and further work-up and evaluation as needed. Referrals: Nataly Richards, FRONT DESK MANAGER [Primary Care Provider] - Discharge Data Discharge Date/Time-TO BE ENTERED AT DEPARTURE: 09/18/21 15:56 Medical Decision Making Patient presenting to the emergency department for chief complaint of chest pressure. He states that this is going on intermittently for the past 3 months but seem to start around the same time he had blunt trauma to the chest. Patient denies any pain with activity and states that he is a runner and otherwise feels fine but typically occurs at rest or with in certain lying positions where he will have a short brief episode of significant right-sided chest pain. Physical exam is unremarkable for any reproducible pain and otherwise benign exam. We will plan on checking standard screening labs along with troponin and D-dimer and chest x-ray. Will give patient Toradol while waiting. Vital signs are stable. Review of EKG shows sinus bradycardia otherwise no acute findings. Please see attending physician's full interpretation note. Review of labs is unremarkable CBC, negative D-dimer, negative troponin, slightly elevated total bilirubin of 2.1 but otherwise no other abnormalities noted. Reassessed patient and patient is asymptomatic at this time. Review of radiologist interpretation of x-ray imaging states no acute cardiopulmonary findings. Given that patient has had symptoms for 3 months with negative troponin and unremarkable work-up I feel patient is safe for outpatient management. I suspect costochondritis with some pleuritic discomfort intermittently. At this time I doubt any emergent cardiac or pulmonary findings but patient informed to take ibuprofen for the next couple days and follow-up with primary care provider. Did discuss with patient return precautions for any new or worsening of symptoms. After discussion of diagnosis and plan of care patient has no further needs, questions, or concerns and states clear understanding to return to the emergency department for any worsening symptoms. Lab Data Labs: Laboratory Tests Range/Units 09/18/21 09/18/21 09/18/21 13:34 13:34 13:39 WBC (4.4-10.8) 10^3/uL 5.34 RBC (4.36-5.78) 10^6/uL 4.80 Hgb (13.5-17.5) g/dL 14.4 Hct (40.0-50.0) % 43.2 MCV (80-95) fL 90.0 MCH (27.0-33.0) pg 30.0 MCHC (32.0-36.0) % 33.3 RDW (11.8-14.1) % 12.4 Plt Count (130-400) 10^3/uL 217 MPV (8.0-11.0) fL 10.8 Immature Gran % 0.2 Neutrophils % 47.2 Lymphocytes % 35.0 Monocytes % 9.2 Eosinophils % 7.5 Basophils % 0.9 Nucleated RBC % % 0 Absolute Neutrophils (1.2-6.7) 10^3/uL 2.52 Absolute Lymphocytes (1.2-3.4) 10^3/uL 1.87 Absolute Monocytes (0.1-0.8) 10^3/uL 0.49 Absolute Eosinophils (0.0-0.7) 10^3/uL 0.40 Absolute Basophils (0.0-0.2) 10^3/uL 0.05 D-Dimer (<500) ng/mlFEU 88 Sodium (136-145) mmol/L 140 Potassium (3.5-5.1) mmol/L 3.8 Chloride (98-107) mmol/L 105 Carbon Dioxide (21.0-32.0) mmol/L 27.8 Anion Gap (3-11) mmol/L 7.2 BUN (7-18) mg/dL 10 Creatinine (0.70-1.30) mg/dL 1.0 Estimated GFR/1.73 m2 (mL/min/1.73m2) >= 60.00 Glucose (74-106) mg/dL 81 Calcium (8.5-10.1) mg/dL 8.5 Magnesium (1.8-2.4) mg/dL 2.3 Total Bilirubin (0.2-1.0) mg/dL 2.1 H AST (15-37) U/L 20 ALT (16-63) U/L 27 Alkaline Phosphatase (46-116) U/L 67 Troponin I (<or=60) ng/L < 50 Total Protein (6.4-8.2) g/dL 7.4 Albumin (3.4-5.0) g/dL 4.2 Range/Units 09/18/21 15:24 WBC (4.4-10.8) 10^3/uL RBC (4.36-5.78) 10^6/uL Hgb (13.5-17.5) g/dL Hct (40.0-50.0) % MCV (80-95) fL MCH (27.0-33.0) pg MCHC (32.0-36.0) % RDW (11.8-14.1) % Plt Count (130-400) 10^3/uL MPV (8.0-11.0) fL Immature Gran % Neutrophils % Lymphocytes % Monocytes % Eosinophils % Basophils % Nucleated RBC % % Absolute Neutrophils (1.2-6.7) 10^3/uL Absolute Lymphocytes (1.2-3.4) 10^3/uL Absolute Monocytes (0.1-0.8) 10^3/uL Absolute Eosinophils (0.0-0.7) 10^3/uL Absolute Basophils (0.0-0.2) 10^3/uL D-Dimer (<500) ng/mlFEU Sodium (136-145) mmol/L Potassium (3.5-5.1) mmol/L Chloride (98-107) mmol/L Carbon Dioxide (21.0-32.0) mmol/L Anion Gap (3-11) mmol/L BUN (7-18) mg/dL Creatinine (0.70-1.30) mg/dL Estimated GFR/1.73 m2 (mL/min/1.73m2) Glucose (74-106) mg/dL Calcium (8.5-10.1) mg/dL Magnesium (1.8-2.4) mg/dL Total Bilirubin (0.2-1.0) mg/dL AST (15-37) U/L ALT (16-63) U/L Alkaline Phosphatase (46-116) U/L Troponin I (<or=60) ng/L Cancelled Total Protein (6.4-8.2) g/dL Albumin (3.4-5.0) g/dL HPI General Mode of arrival: ambulatory. Date/Time Provider Initiated Documentation: 09/18/21 12:24. Limitations to Documentation: no limitations. Information obtained by: patient. History of Present Illness 36 year old M presents to the emergency department with the chief complaint of Chest tightness, described as moderate and similar to prior episodes, Quality is described as dull, and is localized to the chest. Patient reports no radiation. Patient started experiencing this month(s) (3) and it has been intermittent. improves with No relieving factors improve symptom(s), No exacerbating factors reported . Patient notes no other symptoms.. Patient did receive the following treatments prior to arrival, none Related Data Home Medications Medication Instructions Recorded Confirmed hydrocortisone 2.5 % topical cream 1 applic [place] QD-BID PRN #30 g 08/06/21 09/18/21 with perineal applicator (Anusol-HC) ibuprofen 600 mg tablet (IBU) 600 mg PO QID PRN #20 tab 09/18/21 Previous Rx's Medication Instructions Recorded hydrocortisone 2.5 % topical cream 1 applic [place] QD-BID PRN #30 g 08/06/21 with perineal applicator (Anusol-HC) ibuprofen 600 mg tablet (IBU) 600 mg PO QID PRN #20 tab 09/18/21 Allergies Allergy/AdvReac Type Severity Reaction Status Date / Time SEASONAL ALLERGIES Allergy Unknown Uncoded 09/18/21 12:28 General Stated Complaint: Chest Pain KARELY: 2 Review of Systems Constitutional Constitutional: Denies chills, Denies fever(s) and Denies malaise Cardiovascular Cardiovascular: Reports as per HPI, Reports chest pain, Denies chest pain with activity, Denies syncope, Denies irregular heart rhythm, Denies palpitations and Denies dyspnea Respiratory Respiratory: Denies cough, Denies hemoptysis and Denies dyspnea Gastrointestinal Gastrointestinal: Denies abdominal pain, Denies nausea and Denies vomiting Neurologic Neurologic: Denies syncope Psychiatric Psychiatric: Denies anxiety Endocrine Endocrine: Denies palpitations PFSH All Active Problems Costochondritis (Acute) Contusion of rib on right side (Acute) Allergic rhinitis (Acute) Hemorrhoids that prolapse with straining, but retract spontaneously (Chronic 10/11/17) Medical History Decreased urine stream stable Kidney calculus [place]scopic [place]uria [place]03/25/17[place] [facility] [place] all testing wnl SLAP lesion of left shoulder resolved with PT Snoring resolved with weight loss Family History Mother No problems noted. Father No problems noted. Brother No problems noted. Maternal Grandfather , AGE 66 Stroke Hypertension Heart disease Hyperlipidemia Paternal Grandfather , AGE 81 Depression Hyperlipidemia Heart disease Maternal Grandmother Hypertension Heart disease Hyperlipidemia Colon cancer Paternal Grandmother , AGE 69 Ovarian cancer Son No problems noted. Daughter No problems noted. Social History Smoking/Tobacco Use Status: Never Second Hand Exposure: Yes Smoking risk assessment performed?: Yes Alcohol Intake: never Drug use: Never Substance use type: does not use Household members: spouse, family and children Housing: house Communication Needs: None current occupation: [employer] S[employer] Pets and animals: No Sexually active: Yes Do you think of yourself as: straight/heterosexual Current gender identity: male What is your relationship status?: How often do you talk on the phone with friends or family?: once per week How often do you attend yazdanism or adventism services?: decline to answer Do you belong to any clubs or organized social groups?: yes Panel score (0-1 are the most socially isolated patients): 2 What type of physical activity do you participate in: running Duration: 15-30 minutes/day Frequency: 3-4 times per week Destiny/Jain: None Special destiny needs: No Seatbelt use: always Helmet use: Yes Helmet use: always Drive intox or ride w/intox funeral car driver: No Do you feel safe at home: Yes Do you feel safe in your relationship?: Yes Victim of physical abuse: No Victim of emotional abuse: No Victim of sexual abuse: No Would you like helpful sources: No Exam Const General: cooperative, healthy appearing, comfortable, no acute distress, not diaphoretic and not ill appearing Nutritional Appearance: average body habitus Orientation: alert, awake and oriented x3 Limitations: mental status not altered Neck Neck: normal visual inspection, full ROM, trachea midline, supple and no anterior neck swelling Carotids: normal carotid upstroke and no bruits Chest Chest: normal inspection of the chest Resp Effort & Inspection: normal respiratory effort and able to speak in complete sentences Auscultation: clear to auscultation bilaterally Cardio Jugular venous pressure: no JVD Palpation: normal PMI Rate: regular rate Rhythm: regular rhythm Heart Sounds: S1 normal, S2 normal, no click, no gallops, no murmurs and no rubs Bruits: no abdominal aortic bruits and no carotid bruits Pulses: radial pulses present bilaterally 2+ Skin General skin exam: no rashes or lesions noted Neuro General: patient alert, patient awake, patient oriented x3, tone normal and moves all extremities Course Vital Signs Vital signs: Vital Signs Temperature 36.1 C L 09/18/21 12:23 Pulse 62 09/18/21 12:23 Respiratory Rate 16 09/18/21 12:23 Blood Pressure 116/81 09/18/21 12:23 Pulse Oximetry 97 09/18/21 12:23 Temperature 36.1 C L 09/18/21 12:23 Temperature Source Skin 09/18/21 12:23 Pulse 62 09/18/21 12:23 Respiratory Rate 16 09/18/21 12:23 Respiratory Effort Non-Labored 09/18/21 14:27 Respiratory Depth Normal 09/18/21 14:27 Respiratory Pattern Normal 09/18/21 14:27 Blood Pressure 116/81 09/18/21 12:23 Blood Pressure Position Sitting 09/18/21 12:23 Pulse Oximetry 97 09/18/21 12:23 Oxygen Delivery Method Room Air 09/18/21 12:23 Oxygen Flow Rate 0 09/18/21 12:23 Pain Level 0 09/18/21 12:23 Lab/Test Results Lab/Test Results: Laboratory Tests Range/Units 09/18/21 09/18/21 09/18/21 13:34 13:34 13:39 WBC (4.4-10.8) 10^3/uL 5.34 RBC (4.36-5.78) 10^6/uL 4.80 Hgb (13.5-17.5) g/dL 14.4 Hct (40.0-50.0) % 43.2 MCV (80-95) fL 90.0 MCH (27.0-33.0) pg 30.0 MCHC (32.0-36.0) % 33.3 RDW (11.8-14.1) % 12.4 Plt Count (130-400) 10^3/uL 217 MPV (8.0-11.0) fL 10.8 Immature Gran % 0.2 Neutrophils % 47.2 Lymphocytes % 35.0 Monocytes % 9.2 Eosinophils % 7.5 Basophils % 0.9 Nucleated RBC % % 0 Absolute Neutrophils (1.2-6.7) 10^3/uL 2.52 Absolute Lymphocytes (1.2-3.4) 10^3/uL 1.87 Absolute Monocytes (0.1-0.8) 10^3/uL 0.49 Absolute Eosinophils (0.0-0.7) 10^3/uL 0.40 Absolute Basophils (0.0-0.2) 10^3/uL 0.05 D-Dimer (<500) ng/mlFEU 88 Sodium (136-145) mmol/L 140 Potassium (3.5-5.1) mmol/L 3.8 Chloride (98-107) mmol/L 105 Carbon Dioxide (21.0-32.0) mmol/L 27.8 Anion Gap (3-11) mmol/L 7.2 BUN (7-18) mg/dL 10 Creatinine (0.70-1.30) mg/dL 1.0 Estimated GFR/1.73 m2 (mL/min/1.73m2) >= 60.00 Glucose (74-106) mg/dL 81 Calcium (8.5-10.1) mg/dL 8.5 Magnesium (1.8-2.4) mg/dL 2.3 Total Bilirubin (0.2-1.0) mg/dL 2.1 H AST (15-37) U/L 20 ALT (16-63) U/L 27 Alkaline Phosphatase (46-116) U/L 67 Troponin I (<or=60) ng/L < 50 Total Protein (6.4-8.2) g/dL 7.4 Albumin (3.4-5.0) g/dL 4.2 Range/Units 09/18/21 15:24 WBC (4.4-10.8) 10^3/uL RBC (4.36-5.78) 10^6/uL Hgb (13.5-17.5) g/dL Hct (40.0-50.0) % MCV (80-95) fL MCH (27.0-33.0) pg MCHC (32.0-36.0) % RDW (11.8-14.1) % Plt Count (130-400) 10^3/uL MPV (8.0-11.0) fL Immature Gran % Neutrophils % Lymphocytes % Monocytes % Eosinophils % Basophils % Nucleated RBC % % Absolute Neutrophils (1.2-6.7) 10^3/uL Absolute Lymphocytes (1.2-3.4) 10^3/uL Absolute Monocytes (0.1-0.8) 10^3/uL Absolute Eosinophils (0.0-0.7) 10^3/uL Absolute Basophils (0.0-0.2) 10^3/uL D-Dimer (<500) ng/mlFEU Sodium (136-145) mmol/L Potassium (3.5-5.1) mmol/L Chloride (98-107) mmol/L Carbon Dioxide (21.0-32.0) mmol/L Anion Gap (3-11) mmol/L BUN (7-18) mg/dL Creatinine (0.70-1.30) mg/dL Estimated GFR/1.73 m2 (mL/min/1.73m2) Glucose (74-106) mg/dL Calcium (8.5-10.1) mg/dL Magnesium (1.8-2.4) mg/dL Total Bilirubin (0.2-1.0) mg/dL AST (15-37) U/L ALT (16-63) U/L Alkaline Phosphatase (46-116) U/L Troponin I (<or=60) ng/L Cancelled Total Protein (6.4-8.2) g/dL Albumin (3.4-5.0) g/dL
== END 2021-09-18 15:56 | disposition home or self-care (01) ==
PROVIDERS: Emergency Provider Nurse Practitioner Family; PCP Nurse Practitioner
DX: M94.0 Chondrocostal junction syndrome [Tietze] (principal); R00.1 Bradycardia, unspecified
CPT/HCPCS: 36415; 80053; 93005; 96374; 99284; 71046; 83735; 84484; 85025; 85379; 93010; 99283; J1885

== ENCOUNTER 2022-03-09 00:33 | Emergency (ER) | payer OTHER, SELFPAY ==
[2022-03-09 00:42] VITALS: BP 127/87; PULSE 62; RESP 16; TEMP 35.4; O2SAT 98
--- NOTE | 2022-03-09 00:45 | DI.CT_ITS ---
Exam(s) CT BRAIN CTA EXAM: CT BRAIN CTA CLINICAL HISTORY: left frontal head pain. TECHNIQUE: Imaging Protocol: Axial CT angiography was performed with multi-slice acquisition and mu lti-planar and 3D reconstructions. CONTRAST MATERIAL: Intravenous: Omnipaque 350 Contrast volume:structured data in ml Intravenous: Omnipaque 350 Contrast volume:85ml COMPARISON: CT CT RENAL COLIC WO from 03/19/2021 FINDINGS: CT Head W/O and W contrast: Ventricles and Extra axial spaces: Normal in size and morphology for the patient's age. Hemorrhage: None. Cerebral parenchyma: Normal. Midline shift: None. Brainstem/Cerebellum: Normal. Calvarium: Normal. Visualized Paranasal sinuses/Mastoids: Opacification of the left frontal sinus mucosal thickening eth moids. Soft Tissues: Unremarkable. Enhancement: Normal. CTA Brain W: Internal Carotid Arteries: Petrous: Normal. Cavernous: Normal. Cerebral: Normal. Middle Cerebral Arteries: Right: No aneurysm, occlusion or significant stenosis. Left: No aneurysm, occlusion or significant stenosis. Anterior Cerebral Arteries: Right: No aneurysm, occlusion or significant stenosis. Left: No aneurysm, occlusion or significant stenosis. Posterior cerebral Arteries: Right: No aneurysm, occlusion or significant stenosis. Left: No aneurysm, occlusion or significant stenosis. Vertebral Arteries: Right: No aneurysm, occlusion or significant stenosis. Left: No aneurysm, occlusion or significant stenosis. Basilar Artery: No aneurysm, occlusion or significant stenosis. IMPRESSION: 1. Normal CTA examination of the [place] of [place]. 2. Unremarkable CT Head. RADIATION DOSE DELIVERED: 1,736.73mGy.cm Total DLP 1,736.73mGy.cm Total DLP 1,736.73mGy.cm Total DLP DATA REPOSITORY: All CT scans at this facility are submitted to the National Radiology Data Registry (NRDR) Dose Index Registry (DIR) with the [employer] (ACR). RADIATION OPTIMIZATION: All CT scans at this facility use at least one of these dose optimization te chniques: automated exposure control; mA and/or kV adjustment per patient size (includes targeted exa ms where dose is matched to clinical indication); or iterative reconstruction.
--- NOTE | 2022-03-09 00:55 | W.ED.GENAD ---
Discharge Plan Disposition Patient Disposition: HOME Condition: Stable Discharge Details Clinical Impression: Headache Primary Care Provider: Nataly Richards ED Provider: Aguila Lopez Home Meds and New Rx's Prescriptions: Continued hydrocortisone [Anusol-HC] 2.5 % cream with perineal applicator 1 applic IN QD-BID PRN (Reason: hemorrhoids) Qty: 30 1RF ibuprofen [IBU] 600 mg tablet 600 mg PO QID PRN (Reason: pain) Qty: 20 0RF Discharge Instructions Instructions: Migraine Headache (ED) Additional Instructions: your blood work and cat scan did not show concerning findings follow up with your primary care provider in 1-2 weeks if you feel more ill, have fevers or severe worsening pain return to the emergency department Medical Decision Making 37 yo male who denies chronic medical problems comes in with left frontal head pain. He states it started while he was on a place from [place] yesterday morning. He states it slowly worsened during the flight, got better throughout the day and then started to slowly increase again so came here. Denies fevers, chills, vision changes. He has had headaches in the past but not often. He localizes the pain to the area of the head superior to the left orbit, denies eye pain. He has normal appearing eyes, perrl, eomi without pain, no conjunctival irritation. He has no swelling or rashes. No focal deficits, caox4. Suspect given location of pain cluster headache or migraine. Given he has not had this pain in the past will image to evaluate for aneurysm and less likely mass. Not thunderclap in etiology so doubt sah and no fevers, chills or meningismus on exam so doubt nurse first aid infection pt states pain resolved, did have some restlessness with compazine so was given benadryl. labs unremarkable, ct shows no acute findings, some inflammatory changes of paranasal sinuses but denies symptoms consistent with sinusitis. Discussed with pt likely migraine vs cluster headache, he will f/u with his pcp and return precautions given Differential Diagnosis Differential Diagnosis: cluster headache, migraine, tension headache, sah Imaging Data Radiologic Study: Attestation: I personally reviewed and interpreted this imaging study as follows: Imaging: CT Scan Radiologist's impression: IMPRESSION: No large vessel stenosis or occlusion. No intracranial aneurysm noted No evidence for dural venous sinus thrombosis Presumed inflammatory changes in the paranasal sinuses. Lab Data Lab results reviewed: Yes I reviewed the patient's lab results. HPI General Mode of arrival: ambulatory. Date/Time Provider Initiated Documentation: 03/09/22 00:35. Limitations to Documentation: no limitations. Information obtained by: patient. History of Present Illness 37 year old M presents to the emergency department with the chief complaint of left frontal/supraorbital head pain, described as moderate, with intensity rated at 7. Quality is described as sharp, and is localized to the head. Patient reports no radiation. Patient started experiencing this day(s) (1) and it has been constant. No relieving factors improve symptom(s), No exacerbating factors reported . Patient notes no other symptoms.. Patient did receive the following treatments prior to arrival, none Related Data Home Medications Medication Instructions Recorded Confirmed ibuprofen 600 mg tablet (IBU) 600 mg PO QID PRN pain #20 tabs 09/18/21 03/09/22 hydrocortisone 2.5 % topical cream 1 applic IN QD-BID PRN hemorrhoids 11/26/21 03/09/22 with perineal applicator #30 grams (Anusol-HC) Previous Rx's Medication Instructions Recorded ibuprofen 600 mg tablet (IBU) 600 mg PO QID PRN pain #20 tabs 09/18/21 hydrocortisone 2.5 % topical cream 1 applic IN QD-BID PRN hemorrhoids 11/26/21 with perineal applicator #30 grams (Anusol-HC) Allergies Allergy/AdvReac Type Severity Reaction Status Date / Time SEASONAL ALLERGIES Allergy Unknown Uncoded 03/09/22 00:45 General Stated Complaint: Headache KARELY: 2 Review of Systems All systems reviewed & are unremarkable except as noted in HPI and below Constitutional Constitutional: Denies chills, Denies fever(s) and Denies weakness Eyes Eyes: Denies loss of vision Cardiovascular Cardiovascular: Denies chest pain and Denies dyspnea Respiratory Respiratory: Denies cough and Denies dyspnea Gastrointestinal Gastrointestinal: Denies abdominal pain, Denies nausea and Denies vomiting Genitourinary Genitourinary: Denies dysuria Musculoskeletal Musculoskeletal: Denies joint swelling Integumentary/Breasts Skin/Breast: Denies rash Neurologic Neurologic: Denies loss of vision and Denies weakness PFSH All Active Problems (Updated 03/09/22 @ 02:39 by Aguila Lopez MD) Headache (Acute) Contusion of rib on right side (Acute) Allergic rhinitis (Acute) Hemorrhoids that prolapse with straining, but retract spontaneously (Chronic 10/11/17) Medical History Decreased urine stream stable Kidney calculus Microscopic [place]uria [place]03/25/17[place] [facility] [place] all testing wnl SLAP lesion of left shoulder resolved with PT Snoring resolved with weight loss Family History Mother No problems noted. Father No problems noted. Brother No problems noted. Maternal Grandfather , AGE 66 Stroke Hypertension Heart disease Hyperlipidemia Paternal Grandfather , AGE 81 Depression Hyperlipidemia Heart disease Maternal Grandmother Hypertension Heart disease Hyperlipidemia Colon cancer Paternal Grandmother , AGE 69 Ovarian cancer Son No problems noted. Daughter No problems noted. Social History Smoking/Tobacco Use Status: Never Second Hand Exposure: Yes Smoking risk assessment performed?: Yes Alcohol Intake: never Drug use: Never Substance use type: does not use Household members: spouse, family and children Housing: house Communication Needs: None current occupation: [employer] S[employer]ET[employer] Pets and animals: No Sexually active: Yes Do you think of yourself as: straight/heterosexual Current gender identity: male What is your relationship status?: How often do you talk on the phone with friends or family?: once per week How often do you attend gnosticism or yazidism services?: decline to answer Do you belong to any clubs or organized social groups?: yes Panel score (0-1 are the most socially isolated patients): 2 What type of physical activity do you participate in: running Duration: 15-30 minutes/day Frequency: 3-4 times per week Destiny/Restoration: None Special destiny needs: No Seatbelt use: always Helmet use: Yes Helmet use: always Drive intox or ride w/intox route delivery service driver: No Do you feel safe at home: Yes Do you feel safe in your relationship?: Yes Victim of physical abuse: No Victim of emotional abuse: No Victim of sexual abuse: No Would you like helpful sources: No Exam Const General: no acute distress Orientation: alert HENMT Head: normal to inspection Ears: external ears normal General nose exam: external nose normal Mouth: moist mucous membranes Eyes General: appearance normal, both eyes and all related structures Neck Neck: normal visual inspection Resp Effort & Inspection: normal respiratory effort and able to speak in complete sentences Cardio Rate: regular rate Skin General skin exam: no rashes or lesions noted Neuro General: patient alert and patient oriented x3 Extrem General: normal to inspection Psych Mental Status: mental status grossly normal Course Vital Signs Vital signs: Vital Signs Temperature 35.4 C L 03/09/22 00:42 Pulse 62 03/09/22 00:42 Respiratory Rate 16 03/09/22 00:42 Blood Pressure 127/87 03/09/22 00:42 Pulse Oximetry 98 03/09/22 00:42 Temperature 35.4 C L 03/09/22 00:42 Temperature Source Tympanic 03/09/22 00:42 Pulse 62 03/09/22 00:42 Respiratory Rate 16 03/09/22 00:42 Respiratory Effort 03/09/22 00:42 Blood Pressure 127/87 03/09/22 00:42 Blood Pressure Position Sitting 03/09/22 00:42 Pulse Oximetry 98 03/09/22 00:42 Oxygen Delivery Method Room Air 03/09/22 00:42 Oxygen Flow Rate 0 03/09/22 00:42 Pain Level 8 03/09/22 00:47
[2022-03-09 01:07] LABS: Abs Immature Grans 0.01 10^3/uL (0.0-0.06); Absolute Basophil Count 0.08 10^3/uL (0.0-0.2); Absolute Eosinophil Count 0.96 10^3/uL (0.0-0.7); Absolute Lymphocyte Count 2.34 10^3/uL (1.2-3.4); Absolute Monocyte Count 0.82 10^3/uL (0.1-0.8); Absolute Neutrophil Count 3.77 10^3/uL (1.2-6.7); HCT 44.1 % (40.0-50.0); HGB 15.2 g/dL (13.5-17.5); Immature Grans % 0.1; Lymphocytes % 29.3; MCH 30.5 pg (27.0-33.0); MCHC 34.5 % (32.0-36.0); MCV 88 fL (80-95); MPV 10.5 fL (8.0-11.0); Monocytes % 10.3; Neutrophils % 47.3; Platelet Count 238 10^3/uL (130-400); RBC 4.99 10^6/uL (4.36-5.78); WBC 7.98 10^3/uL (4.4-10.8)
[2022-03-09] MEDS: Dexamethasone 10 MG/ML VIAL IVP (01:12)
[2022-03-09] MEDS: Prochlorperazine 10 MG/2 ML VIAL IVP (01:13)
[2022-03-09] MEDS: Normal Saline 1,000 ML 1000 ML IV (01:23)
[2022-03-09] MEDS: Omnipaque 350 MG/ML 100 ML BTL IJ (01:26)
[2022-03-09] MEDS: Normal Saline Flush 10 ML SYR IVP (01:28)
[2022-03-09 01:38] LABS: ALT 23 U/L (16-63); AST 15 U/L (15-37); Alkaline Phosphatase 72 U/L (46-116); Anion Gap 7.2 mmol/L (3-11); BUN 19 mg/dL (7-18); CO2 28.8 mmol/L (21.0-32.0); CREATININE 1.1 mg/dL (0.70-1.30); Calcium 8.6 mg/dL (8.5-10.1); Chloride 105 mmol/L (98-107); Estimated GFR 89.22 (mL/min/1.73m2); Glucose 97 mg/dL (74-106); Potassium 3.7 mmol/L (3.5-5.1); Sodium 141 mmol/L (136-145); Total Protein 7.5 g/dL (6.4-8.2)
--- NOTE | 2022-03-09 02:01 | DI.VRAD_ITS ---
PROCEDURE INFORMATION: Exam: CTA Head With Contrast, Arteriography Exam date and time: 03/09/2022 1:31 AM Age: 37 years old Clinical indication: Stroke-like symptoms; Headache; Additional info: Left frontal head pain TECHNIQUE: Imaging protocol: Computed tomographic angiography of the head with contrast. Exam focused on the arteries. 3D rendering (Not supervised by radiologist): MIP and/or 3D reconstructed images were created by the technologist. Radiation optimization: All CT scans at this facility use at least one of these dose optimization techniques: automated exposure control; mA and/or kV adjustment per patient size (includes targeted exams where dose is matched to clinical indication); or iterative reconstruction. Contrast material: OMNIPAQUE 350; Contrast volume: 85 ml; Contrast route: INTRAVENOUS (IV); COMPARISON: No relevant prior studies available. FINDINGS: ANTERIOR CIRCULATION: Right internal carotid artery: Intracranial segment is patent with no significant stenosis. No aneurysm. Right middle cerebral artery: No occlusion or significant stenosis. No aneurysm. Right anterior cerebral artery: No occlusion or significant stenosis. No aneurysm. Left internal carotid artery: Intracranial segment is patent with no significant stenosis. No aneurysm. Left middle cerebral artery: No occlusion or significant stenosis. No aneurysm. Left anterior cerebral artery: No occlusion or significant stenosis. No aneurysm. POSTERIOR CIRCULATION: Right vertebral artery: No occlusion or significant stenosis. No aneurysm. Left vertebral artery: No occlusion or significant stenosis. No aneurysm. Basilar artery: No occlusion or significant stenosis. No aneurysm. Right posterior cerebral artery: No occlusion or significant stenosis. No aneurysm. Left posterior cerebral artery: No occlusion or significant stenosis. No aneurysm. The visualized dural venous sinuses are grossly patent Brain: No definite mass, mass effect, or midline shift. Cerebral ventricles: No ventriculomegaly. Bones/joints: Unremarkable. No acute fracture. Soft tissues: Unremarkable. Polypoid tissue left frontal sinus. Mild mucosal thickening in the remainder of the anterior paranasal sinuses IMPRESSION: No large vessel stenosis or occlusion. No intracranial aneurysm noted No evidence for dural venous sinus thrombosis Presumed inflammatory changes in the paranasal sinuses. Dictated and Authenticated by: Thony Mancilla MD. Ordering:MARJAN Sheehan MD
[2022-03-09] MEDS: diphenhydrAMINE 50 MG/ML VIAL 25 MG IVP (02:27)
[2022-03-09 02:44] VITALS: BP 140/81; PULSE 82; RESP 19; TEMP 36.9; O2SAT 99
== END 2022-03-09 02:56 | disposition home or self-care (01) ==
PROVIDERS: Emergency Provider Emergency Medicine; PCP Nurse Practitioner
DX: R51.9 Headache, unspecified (principal); R45.1 Restlessness and agitation; Z77.22 Contact with and (suspected) exposure to environmental tobacco smoke (acute) (chronic)
CPT/HCPCS: 70496; 80053; 96361; 96374; 96375; 96376; 99285; 85025; 99284; J0780; J1100; J1200; J3490

== ENCOUNTER → 2023-12-23 01:00 | Outpatient (CLI) | payer OTHER, SELFPAY ==
--- NOTE | 2023-12-23 09:02 | DI.RAD_ITS ---
Exam(s) XR CHEST 2V PA LATERAL EXAM: XR CHEST 2V PA LATERAL CLINICAL HISTORY: subjective wheezing,R06.2 TECHNIQUE: 2D digital imaging was performed of the chest. Two images were obtained. PA and lateral views were obtained. COMPARISON: CR XR RIBS RT W PA LAT CHEST from 08/07/2021 CR XR CHEST 2V PA LATERAL from 09/18/2021 FINDINGS: MEDIASTINUM: Normal. HEART: Normal. PULMONARY VASCULATURE: Normal. LUNGS: Clear. PLEURAL SPACE: No pleural effusion or pneumothorax. BONE:Within normal limits for the patient's age. OTHER FINDINGS:Normal. IMPRESSION: No acute pulmonary findings. DATA REPOSITORY: RADIATION DOSE DELIVERED:
== END ==
PROVIDERS: PCP Nurse Practitioner Family; Visit Provider Nurse Practitioner Family
DX: R06.2 Wheezing (principal)
CPT/HCPCS: 71046